=== PATIENT | female | born 1940 | race Caucasian/White ===

== ENCOUNTER 2018-03-03 11:27 | Emergency (ER) | payer MEDICARE ==
[~2018-03-03] VITALS: Ht 162.6 cm; Wt 63.1 kg
[2018-03-03] MEDS ORDERED: LEVOTHYROXIN125 MCG PO (12:49)
[2018-03-03] MEDS ORDERED: AMLODIPINE2.5 MG PO (12:49)
[2018-03-03] MEDS ORDERED: FUROSEMIDE20 MG PO (12:49)
[2018-03-03] MEDS ORDERED: HYZAAR1 TA1 PO (12:50)
[2018-03-03] MEDS ORDERED: ANORO ELLIPTA 61 AER IN (12:51)
[2018-03-03] MEDS ORDERED: JANUVIA100 MG PO (12:51)
[2018-03-03] MEDS ORDERED: METFORMIN500 MG PO (12:51)
[2018-03-03] MEDS ORDERED: [UNRECOGNIZED DRUG - OTHER] (12:51)
[2018-03-03 15:10] VITALS: BP 149/67
[2018-03-04] MEDS ORDERED: OMNICEF300 M1 PO (13:13)
[2018-03-04] MEDS ORDERED: MUPIROCIN21 TOP (13:13)
== END 2018-03-03 15:10 | disposition home or self-care (01) ==
LOC: ED 11:27
PROC: 0HQ1XZZ Repair Face Skin, External Approach (ICD-10-PCS; principal; 2018-03-03)
DX: S01.81XA Laceration without foreign body of other part of head, initial encounter (principal); S80.11XA Contusion of right lower leg, initial encounter; S70.01XA Contusion of right hip, initial encounter; M79.644 Pain in right finger(s); E11.9 Type 2 diabetes mellitus without complications; I10 Essential (primary) hypertension; W01.0XXA Fall on same level from slipping, tripping and stumbling without subsequent striking against object, initial encounter; Y93.89 Activity, other specified; Y92.410 Unspecified street and highway as the place of occurrence of the external cause

== ENCOUNTER 2018-03-04 11:46 | Emergency (ER) | payer MEDICARE ==
[~2018-03-04] VITALS: Ht 162.6 cm; Wt 63.2 kg
[~2018-03-04 11:46] MED LIST: AMLODIPINE2.5 MG PO; ANORO ELLIPTA 61 AER IN; FUROSEMIDE20 MG PO; HYZAAR1 TA1 PO; JANUVIA100 MG PO; LEVOTHYROXIN125 MCG PO; METFORMIN500 MG PO; [UNRECOGNIZED DRUG - OTHER]
[2018-03-04] MEDS ORDERED: OMNICEF300 M1 PO (13:13)
[2018-03-04] MEDS ORDERED: MUPIROCIN21 TOP (13:13)
[2018-03-04 14:30] VITALS: BP 126/50
== END 2018-03-04 14:30 | disposition home or self-care (01) ==
LOC: ED 11:46
PROC: 2W3KX1Z Immobilization of Left Finger using Splint (ICD-10-PCS; principal; 2018-03-04)
DX: S61.211A Laceration without foreign body of left index finger without damage to nail, initial encounter (principal); L03.012 Cellulitis of left finger; M25.542 Pain in joints of left hand; W10.1XXA Fall (on)(from) sidewalk curb, initial encounter; Y93.01 Activity, walking, marching and hiking; Y92.480 Sidewalk as the place of occurrence of the external cause; R22.32 Localized swelling, mass and lump, left upper limb